=== PATIENT | female | born 1960 | race Caucasian/White ===

== ENCOUNTER 2020-03-28 06:58 | Outpatient (NON) | payer MEDICARE, SELFPAY ==
[2020-03-28 23:27] LABS: SARS-CoV-2 RNA PCR Negative
== END 2020-03-28 06:59 ==
PROVIDERS: Visit Provider Nurse Practitioner Family
DX: Z20.828 Contact with and (suspected) exposure to other viral communicable diseases (principal); R53.83 Other fatigue; R11.10 Vomiting, unspecified; R10.9 Unspecified abdominal pain
CPT/HCPCS: 87635; C9803; U0003

== ENCOUNTER 2022-07-21 17:23 | Emergency (ER) | payer MEDICARE, SELFPAY ==
--- NOTE | 2022-07-21 17:26 | PC.NURSE ---
patient reports that the wait is to long and left prior to triage
== END 2022-07-21 17:32 | disposition left against medical advice (07) ==
DX: Z53.21 Procedure and treatment not carried out due to patient leaving prior to being seen by health care provider (principal)
CPT/HCPCS: 99199

== ENCOUNTER 2023-08-03 08:59 | Outpatient (CLI) | payer OTHER, SELFPAY ==
--- NOTE | 2023-08-11 13:27 | WPDSLEEPSTUD ---
Sleep Study Date of Study: 08/03/23 Ordering Provider: Gauri Rueda MD Interpreting Physician: Hanna Weaver DO Sleep Study Type: Split Polysomnogram Height: 1.73 m Weight: 96.615 kg Body Mass Index: 32.3 Neck Circumference (inches): 15.5 [place]: 1 Reason for Sleep Study Unrefreshing sleep Sleep History The patient is a 63-year-old female with COPD, congestive heart failure, anxiety, hypertension, iron deficiency anemia, depression, hypertension, subclinical hypothyroidism, B12 deficiency, current tobacco use and daily marijuana use that had a sleep study ordered by the pulmonary group for evaluation of sleep apnea. The patient's sleep intake forms are unavailable. [facility] Past Medical History Medical History Anemia Anxiety Arthritis Cholecystectomy planned COPD (chronic obstructive pulmonary disease) Folic acid deficiency Gastrointestinal hemorrhage Hypertension Iron deficiency anemia Low vitamin D level Lung nodule Major depressive disorder Mixed hyperlipidemia Nicotine dependence Obesity Pulmonary emphysema Rectal bleeding Subclinical hypothyroidism Vitamin B 12 deficiency Surgical History Surgical History Hx of colonoscopy with polypectomy Previous section Wrist fracture, left Family History Family History Mother Colon cancer Father Lung cancer Kidney malignancy Sibling COPD (chronic obstructive pulmonary disease) Diabetes mellitus Pulmonary embolism Grandparent Lung disease Malignant neoplasm of prostate Daughter Hypothyroidism Crohn's disease Son Hypothyroidism Social History Social History Smoking packs per day: 1.5 Smoking cigarettes per day: 30.0 Years smoked: 50 Smoking pack-years: 75.00 Smoking status: Current every day smoker Tobacco type: cigarettes Second hand tobacco smoke exposure: Yes Alcohol intake: former Substance use: current Substance use type: marijuana Medications Home Medications Medication Instructions Recorded Confirmed Type albuterol sulfate 90 mcg/actuation inhalation 06/25/23 06/30/23 History aerosol inhaler alprazolam 0.5 mg tablet 0.5 mg PO BID PRN 06/25/23 06/30/23 History ascorbic acid (vitamin C) 100 mg 100 mg PO DAILY 06/25/23 06/30/23 History tablet aspirin 81 mg tablet,delayed 81 mg PO DAILY 06/25/23 06/30/23 History release (Adult Low Dose Aspirin) atorvastatin 80 mg tablet 80 mg PO DAILY 06/25/23 06/30/23 History budesonide 160 mcg-glycopyr 9 inh inhalation 06/25/23 06/30/23 History mcg-formot 4.8 mcg/actuation HFA inhaler (Breztri Aerosphere) cholecalciferol (vitamin D3) 50 50 mcg PO DAILY 06/25/23 06/30/23 History mcg (2,000 unit) capsule clopidogrel 75 mg tablet 75 mg PO DAILY 06/25/23 06/30/23 History fenofibrate nanocrystallized 145 mg PO 06/25/23 06/30/23 History mg tablet hydrocodone 10 mg-acetaminophen tablet PO Q6H PRN 06/25/23 06/30/23 History 325 mg tablet lisinopril 5 mg tablet 10 mg PO DAILY 06/25/23 06/30/23 History metoprolol tartrate 25 mg tablet 25 mg PO DAILY 06/25/23 06/30/23 History omeprazole 40 mg capsule,delayed 40 mg PO DAILY 06/25/23 06/30/23 History release ondansetron 4 mg disintegrating 4 mg PO Q8H PRN 06/25/23 06/30/23 History tablet paroxetine HCl 10 mg tablet 10 mg PO DAILY 06/25/23 06/30/23 History paroxetine HCl 40 mg tablet 40 mg PO DAILY 06/25/23 06/30/23 History spironolactone 25 mg tablet 25 mg PO DAILY 06/25/23 06/30/23 History vitamin B complex (B 1 tablet PO DAILY 06/25/23 06/30/23 History Complex-Vitamin B12 tablet) naloxone 4 mg/actuation nasal 4 mg intranasal Q2M PRN 06/30/23 06/30/23 History spray (Narcan) Sleep Procedure A full
[2023-08-11 13:28] VITALS: BMI 32.3
== END 2023-08-04 06:58 | disposition home or self-care (01) ==
LOC: ANHCSM 09:02
PROVIDERS: PCP Nurse Practitioner Family; Visit Provider Internal Medicine Critical Care Medicine
DX: G47.33 Obstructive sleep apnea (adult) (pediatric) (principal)
CPT/HCPCS: 95811

== ENCOUNTER 2023-09-08 08:34 | Outpatient (CLI) | payer MEDICARE, SELFPAY ==
--- NOTE | 2023-09-17 20:31 | WPDSLEEPSTUD ---
Sleep Study Date of Study: 09/08/23 Ordering Provider: Gauri Rueda MD Interpreting Physician: Gauri Rueda MD Sleep Study Type: CPAP Titration Height: 1.73 m Weight: 96.615 kg Body Mass Index: 32.3 Neck Circumference (inches): 15.5 [place]: 1 Reason for Sleep Study Split night study 08/03/23 - moderate DANIELE with AHI 15 and treatment emergent centrals, no optimal pressure, tried CPAP and BiPAP up to 13/8. No REM. She returns for a full night CPAP titration. Sleep History Sendy Walker is a 63-year-old female with COPD, congestive heart failure, anxiety, hypertension, iron deficiency anemia, depression, hypertension, subclinical hypothyroidism, B12 deficiency, current tobacco use and daily marijuana use who had a split night sleep study on 08/03/2023 showing moderate obstructive sleep apnea with an incomplete titration. She returns at this time for a full night PAP titration. The patient's sleep intake forms are unavailable. [facility] Past Medical History Medical History Anemia Anxiety Arthritis Cholecystectomy planned COPD (chronic obstructive pulmonary disease) Folic acid deficiency Gastrointestinal hemorrhage Hypertension Iron deficiency anemia Low vitamin D level Lung nodule Major depressive disorder Mixed hyperlipidemia Nicotine dependence Obesity Pulmonary emphysema Rectal bleeding Subclinical hypothyroidism Vitamin B 12 deficiency Surgical History Surgical History Hx of colonoscopy with polypectomy Previous section Wrist fracture, left Family History Family History Mother Colon cancer Father Lung cancer Kidney malignancy Sibling COPD (chronic obstructive pulmonary disease) Diabetes mellitus Pulmonary embolism Grandparent Lung disease Malignant neoplasm of prostate Daughter Hypothyroidism Crohn's disease Son Hypothyroidism Social History Social History Smoking packs per day: 1.5 Smoking cigarettes per day: 30.0 Years smoked: 50 Smoking pack-years: 75.00 Smoking status: Current every day smoker Tobacco type: cigarettes Second hand tobacco smoke exposure: Yes Alcohol intake: former Substance use: current Substance use type: marijuana Medications Home Medications Medication Instructions Recorded Confirmed Type albuterol sulfate 90 mcg/actuation inhalation 06/25/23 06/30/23 History aerosol inhaler alprazolam 0.5 mg tablet 0.5 mg PO BID PRN 06/25/23 06/30/23 History ascorbic acid (vitamin C) 100 mg 100 mg PO DAILY 06/25/23 06/30/23 History tablet aspirin 81 mg tablet,delayed 81 mg PO DAILY 06/25/23 06/30/23 History release (Adult Low Dose Aspirin) atorvastatin 80 mg tablet 80 mg PO DAILY 06/25/23 06/30/23 History budesonide 160 mcg-glycopyr 9 inh inhalation 06/25/23 06/30/23 History mcg-formot 4.8 mcg/actuation HFA inhaler (Breztri Aerosphere) cholecalciferol (vitamin D3) 50 50 mcg PO DAILY 06/25/23 06/30/23 History mcg (2,000 unit) capsule clopidogrel 75 mg tablet 75 mg PO DAILY 06/25/23 06/30/23 History fenofibrate nanocrystallized 145 mg PO 06/25/23 06/30/23 History mg tablet hydrocodone 10 mg-acetaminophen tablet PO Q6H PRN 06/25/23 06/30/23 History 325 mg tablet lisinopril 5 mg tablet 10 mg PO DAILY 06/25/23 06/30/23 History metoprolol tartrate 25 mg tablet 25 mg PO DAILY 06/25/23 06/30/23 History omeprazole 40 mg capsule,delayed 40 mg PO DAILY 06/25/23 06/30/23 History release ondansetron 4 mg disintegrating 4 mg PO Q8H PRN 06/25/23 06/30/23 History tablet paroxetine HCl 10 mg tablet 10 mg PO DAILY 06/25/23 06/30/23 History paroxetine HCl 40 mg tablet 40 mg PO DAILY 06/25/23 06/30/23 History spironolactone 25 mg tablet 25 mg PO DAILY
[2023-09-17 20:36] VITALS: BMI 32.3
== END 2023-09-09 07:04 | disposition home or self-care (01) ==
LOC: ANHCSM 08:35
PROVIDERS: PCP Nurse Practitioner Family; Visit Provider Internal Medicine Critical Care Medicine
DX: G47.33 Obstructive sleep apnea (adult) (pediatric) (principal); I10 Essential (primary) hypertension; Z68.32 Body mass index [BMI] 32.0-32.9, adult
CPT/HCPCS: 95811